=== PATIENT | male | born 1965 | race Caucasian/White ===

== ENCOUNTER → 2020-04-30 11:57 | Outpatient (CLI) | payer BC, OTHER, SELFPAY ==
--- NOTE | 2020-04-30 12:00 | RAD_ITS ---
STUDY: X-RAY CHEST REASON FOR EXAM: Male, 55 years old. POSITIVE COVID 19. TECHNIQUE: PA and lateral views of the chest. COMPARISON: None. FINDINGS: The lungs are clear and expanded. There is no demonstrated pleural abnormality. Normal size heart. Normal mediastinum and bertha. Normal visualized pulmonary arteries. Normal visualized aortic arch and descending thoracic aorta. There are diffuse degenerative changes of the visualized thoracic spine. Normal visualized ribs, clavicles, and shoulders. There is no demonstrated abnormality of the visualized soft tissue structures of the upper abdomen. RAD/Chest PA and Lateral IMPRESSION: No airspace consolidation or pleural effusion. Electronically Signed: Manuel Anthony MD ([place]) at 21:42 EST , Service support ,
== END ==
PROVIDERS: Visit Provider Clinical Nurse Specialist
DX: U07.1 COVID-19 (principal)
CPT/HCPCS: 71046